=== PATIENT | male | born 1965 | race African-American/Black ===

== ENCOUNTER 2017-08-03 09:39 | Emergency (ER) | payer SELFPAY ==
[2017-08-03 09:45] VITALS: BP 149/90
[2017-08-03] MEDS ORDERED: DEXAMETHASONE SOD PHOS INJ 10 MG/1 ML VIAL IM ONE (10:08)
[2017-08-03] MEDS ORDERED: KETOROLAC TROMETHAMINE INJ/PF 30 MG/1 ML SDV IM ONE (10:08)
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
--- NOTE | 2017-08-03 10:43 | RADIOLOGY REPORT (SQ) ---
EXAM DESCRIPTION: L SPINE WHOLE COMPLETED DATE/TIME: 08/03/2017 10:26 am REASON FOR STUDY: sciatica back pain COMPARISON: None. NUMBER OF VIEWS: Five views including obliques. TECHNIQUE: AP, lateral, oblique, and sacral radiographic images acquired of the lumbar spine. LIMITATIONS: None. FINDINGS: MINERALIZATION: Normal. SEGMENTATION: Normal. No transitional anatomy. ALIGNMENT: Grade 1 anterolisthesis of L4 on L5. Alignment is otherwise normal. VERTEBRAE: Maintained height. No fracture or worrisome bone lesion. DISCS: Mild to moderate multilevel degenerative disc disease. Mild to moderate multilevel facet arth ropathy. POSTERIOR ELEMENTS: Pedicles and facets are intact. No pars defect or posterior arch defects. HARDWARE: None in the spine. PARASPINAL SOFT TISSUES: Normal. PELVIS: Intact as visualized. No fractures or worrisome bone lesions. SI joints intact. OTHER: No other significant finding. IMPRESSION: MILD TO MODERATE MULTILEVEL DEGENERATIVE CHANGE WITH GRADE 1 ANTEROLISTHESIS OF L4 ON L5 . NO ACUTE OSSEOUS ABNORMALITY. TECHNICAL DOCUMENTATION: JOB ID: [id number] [employer]- All Rights Reserved Reading location - IP/workstation name: [email or web address]
[2017-08-03] MEDS ORDERED: LIDOCAINE 5% (700 MG) TRANSDERMAL ADH..PATCH TP ONE (11:01)
[2017-08-03] MEDS ORDERED: METHOCARBAMOL 500 MG TABLET PO ONE (11:02)
== END 2017-08-03 11:22 | disposition home or self-care (01) ==
LOC: ER 09:39
DX: M54.41 Lumbago with sciatica, right side (principal); I10 Essential (primary) hypertension; E11.9 Type 2 diabetes mellitus without complications
CPT/HCPCS: 99283; 96372; 72110; J1885; J1100

== ENCOUNTER 2018-02-05 09:23 | Emergency (ER) | payer OTHER ==
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
[2018-02-05 10:32] LABS: APPEARANCE,URINE CLEAR; BILIRUBIN,URINE NEGATIVE (NEGATIVE); COLOR,URINE STRAW; GLUCOSE, URINE >=500 mg/dL (NEGATIVE); KETONES,URINE TRACE mg/dL (NEGATIVE); LEUKOCYTE ESTERASE,URINE NEGATIVE (NEGATIVE); NITRITE,URINE NEGATIVE (NEGATIVE); PROTEIN,URINE NEGATIVE (NEGATIVE); URINE SPECIFIC GRAVITY 1.033; UROBILINOGEN,URINE NEGATIVE mg/dL (<2.0)
[2018-02-05 10:33] LABS: ABSOLUTE EOSINOPHILS # (AUTO) 0.2 10^3/uL (0.0-0.6); ABSOLUTE LYMPHOCYTES (AUTO) 2.1 10^3/uL (0.5-4.7); ABSOLUTE MONOCYTES (AUTO) 0.6 10^3/uL (0.1-1.4); ABSOLUTE NEUT (AUTO) 4.8 10^3/uL (1.7-8.2); BASOPHILS % (AUTO) 0.4 % (0-2); EOSINOPHILS % (AUTO) 2.6 % (0-6); HEMATOCRIT 44.9 % (37.9-51.0); LYMPHOCYTES % (AUTO) 27.5 % (13-45); MEAN CORPUSCULAR HEMOGLOBIN 27.8 pg (27.0-33.4); MEAN CORPUSCULAR HGB CONC 33.5 g/dL (32.0-36.0); MEAN CORPUSCULAR VOLUME 83 fl (80-97); MONOCYTES % (AUTO) 7.8 % (3-13); PLATELET COUNT 246 10^3/uL (150-450); RED BLOOD COUNT 5.42 10^6/uL (4.35-5.55); RED CELL DISTRIBUTION WIDTH 13.7 % (11.5-14.0); SEGMENTED NEUTROPHILS % (AUTO) 61.7 % (42-78); TOTAL CELLS COUNTED % (AUTO) 100 %; WHITE BLOOD COUNT 7.7 10^3/uL (4.0-10.5)
[2018-02-05 10:48] LABS: ALANINE AMINOTRANSFERASE 16 U/L (21-72); ALBUMIN 4.5 g/dL (3.5-5.0); ALKALINE PHOSPHATASE 79 U/L (38-126); ANION GAP 10 (5-19); ASPARTATE AMINO TRANSFERASE 15 U/L (17-59); BILIRUBIN,DIRECT 0.3 mg/dL (0.0-0.4); BILIRUBIN,TOTAL 1.4 mg/dL (0.2-1.3); BLOOD UREA NITROGEN 14 mg/dL (7-20); CALCIUM 10.1 mg/dL (8.4-10.2); CARBON DIOXIDE 30 mmol/L (22-30); CHLORIDE 100 mmol/L (98-107); GLUCOSE 325 mg/dL (75-110); LIPASE 160.4 U/L (23-300); POTASSIUM 4.5 mmol/L (3.6-5.0); SODIUM 139.9 mmol/L (137-145); TOTAL PROTEIN 7.9 g/dL (6.3-8.2)
[2018-02-05] MEDS ORDERED: METFORMIN HCL 500 MG TABLET PO ONE (11:14)
[2018-02-05] MEDS ORDERED: CARVEDILOL 12.5 MG TABLET PO ONE (11:14)
[2018-02-05 11:26] VITALS: BP 142/84
== END 2018-02-05 11:35 | disposition home or self-care (01) ==
LOC: ER 09:23
DX: H53.8 Other visual disturbances (principal); E11.9 Type 2 diabetes mellitus without complications; R40.2412 Glasgow coma scale score 13-15, at arrival to emergency department; I10 Essential (primary) hypertension; Z87.820 Personal history of traumatic brain injury
CPT/HCPCS: 36415; 80053; 81001; 82962; 83036; 83690; 85025; 99283

== ENCOUNTER 2018-04-10 12:29 | Emergency (ER) | payer MEDICAID, OTHER ==
[2018-04-10 12:39] VITALS: BP 140/109
[2018-04-10] MEDS ORDERED: LIDOCAINE 5% (700 MG) TRANSDERMAL ADH..PATCH TP ONE (12:52)
[2018-04-10] MEDS ORDERED: PREDNISONE 20 MG TABLET PO ONE (12:52)
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
== END 2018-04-10 13:00 | disposition home or self-care (01) ==
LOC: ER 12:29
DX: M54.41 Lumbago with sciatica, right side (principal); I10 Essential (primary) hypertension; E11.9 Type 2 diabetes mellitus without complications; Z87.820 Personal history of traumatic brain injury
CPT/HCPCS: 99283; J7512

== ENCOUNTER 2018-05-18 00:24 | Emergency (ER) | payer SELFPAY ==
[2018-05-18] MEDS ORDERED: KETOROLAC TROMETHAMINE 60 MG/2 ML SDV IM ONE (01:26)
[2018-05-18] MEDS ORDERED: LIDOCAINE 5% (700 MG) TRANSDERMAL ADH..PATCH TP ONE (01:28)
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
[2018-05-18] MEDS ORDERED: HYDROMORPHONE HCL INJ/PF 2 MG/ML AMPULE IM ONE (02:25)
[2018-05-18 03:32] VITALS: BP 154/78
== END 2018-05-18 03:31 | disposition home or self-care (01) ==
LOC: ER 00:24
DX: M54.41 Lumbago with sciatica, right side (principal); G89.29 Other chronic pain; E11.9 Type 2 diabetes mellitus without complications; I10 Essential (primary) hypertension
CPT/HCPCS: 99283; 96372; J1885; J1170

== ENCOUNTER 2018-10-19 05:42 | Inpatient (IN) | payer SELFPAY ==
[2018-10-19] MEDS ORDERED: ASPIRIN 81 MG TABLET, CHEWABLE PO ONE (07:32)
[2018-10-19 08:11] LABS: ABSOLUTE EOSINOPHILS # (AUTO) 0.2 10^3/uL (0.0-0.6); ABSOLUTE MONOCYTES (AUTO) 0.8 10^3/uL (0.1-1.4); ABSOLUTE NEUT (AUTO) 5.7 10^3/uL (1.7-8.2); BASOPHILS % (AUTO) 0.3 % (0-2); EOSINOPHILS % (AUTO) 1.8 % (0-6); HEMATOCRIT 40.3 % (37.9-51.0); HEMOGLOBIN 13.7 g/dL (13.5-17.0); LYMPHOCYTES % (AUTO) 23.4 % (13-45); MEAN CORPUSCULAR HEMOGLOBIN 28.3 pg (27.0-33.4); MEAN CORPUSCULAR VOLUME 84 fl (80-97); MONOCYTES % (AUTO) 9.6 % (3-13); PLATELET COUNT 247 10^3/uL (150-450); RED BLOOD COUNT 4.83 10^6/uL (4.35-5.55); RED CELL DISTRIBUTION WIDTH 13.9 % (11.5-14.0); SEGMENTED NEUTROPHILS % (AUTO) 64.9 % (42-78); TOTAL CELLS COUNTED % (AUTO) 100 %; WHITE BLOOD COUNT 8.7 10^3/uL (4.0-10.5)
--- NOTE | 2018-10-19 08:13 | RADIOLOGY REPORT (SQ) ---
EXAM DESCRIPTION: CHEST SINGLE VIEW COMPLETED DATE/TIME: 10/19/2018 7:44 am REASON FOR STUDY: dyspnea, chest pain COMPARISON: None. EXAM PARAMETERS: NUMBER OF VIEWS: One view. TECHNIQUE: Single frontal radiographic view of the chest acquired. RADIATION DOSE: NA LIMITATIONS: None. FINDINGS: LUNGS AND PLEURA: No opacities, masses or pneumothorax. No pleural effusion. MEDIASTINUM AND HILAR STRUCTURES: No masses. Contour normal. HEART AND VASCULAR STRUCTURES: Heart normal in size. Normal vasculature. BONES: No acute findings. HARDWARE: None in the chest. OTHER: No other significant finding. IMPRESSION: NO ACUTE RADIOGRAPHIC FINDING IN THE CHEST. TECHNICAL DOCUMENTATION: JOB ID: [id number] [employer]- All Rights Reserved Reading location - IP/workstation name: [email or web address]
[2018-10-19 08:35] LABS: ALANINE AMINOTRANSFERASE 23 U/L (21-72); ALBUMIN 4.1 g/dL (3.5-5.0); ALKALINE PHOSPHATASE 63 U/L (38-126); ANION GAP 9 (5-19); ASPARTATE AMINO TRANSFERASE 22 U/L (17-59); BILIRUBIN,DIRECT 0.2 mg/dL (0.0-0.4); BILIRUBIN,TOTAL 0.9 mg/dL (0.2-1.3); BLOOD UREA NITROGEN 16 mg/dL (7-20); CALCIUM 9.3 mg/dL (8.4-10.2); CARBON DIOXIDE 27 mmol/L (22-30); CHLORIDE 106 mmol/L (98-107); CREATINE KINASE 73 U/L (55-170); GLUCOSE 200 mg/dL (75-110); POTASSIUM 4.5 mmol/L (3.6-5.0); SODIUM 142.2 mmol/L (137-145); TOTAL PROTEIN 7.1 g/dL (6.3-8.2)
[2018-10-19 08:47] LABS: CREATINE KINASE MB 1.09 ng/mL (<4.55)
[2018-10-19 08:49] LABS: TROPONIN I 0.228 ng/mL
[2018-10-19] MEDS ORDERED: NITROGLYCERIN 2% OINTMENT 1 GM PACKET TP ONE (09:45)
[2018-10-19] MEDS ORDERED: CARVEDILOL 12.5 MG TABLET PO ONE (09:46)
[2018-10-19] MEDS ORDERED: LISINOPRIL 10 MG TABLET PO ONE (09:46)
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
[2018-10-19] MEDS ORDERED: (PENDING PHARMACY ID) (Liraglutide [Victoza 2-Pak] 1.2 MG) SQ SCH (17:45)
[2018-10-19] MEDS ORDERED: METOPROLOL SUCCINATE 50 MG TAB.SR.24H PO SCH (17:45)
[2018-10-19] MEDS: METFORMIN HCL 500 MG TABLET PO SCH (18:47)
[2018-10-19] MEDS: ASPIRIN 81 MG TABLET, ENT COATED PO SCH (18:48)
[2018-10-19] MEDS: ENOXAPARIN SODIUM INJ 30 MG/0.3 ML DISP.SYRIN SUBCUT SCH (18:48)
[2018-10-19] MEDS: RAMIPRIL 5 MG CAPSULE PO SCH (18:49)
[2018-10-19 19:06] LABS: PARTIAL THROMBOPLASTIN TIME 27.6 SEC (23.5-35.8); PROTHROMBIN TIME 13.2 SEC (11.4-15.4)
[2018-10-19 19:14] LABS: LIPASE 238.3 U/L (23-300)
--- NOTE | 2018-10-19 19:22 | EKG REPORT ---
SEVERITY:- BORDERLINE ECG - SINUS TACHYCARDIA BORDERLINE R WAVE PROGRESSION, ANTERIOR LEADS : Confirmed by: Liliana Bray MD 19-Oct-2018 19:22:01
[2018-10-19 19:27] LABS: ARTERIAL BLOOD BASE EXCESS 0.6 mmol/L; ARTERIAL BLOOD H2CO3 1.33 mmol/L (1.05-1.35); ARTERIAL BLOOD HCO3 25.9 mmol/L (20-24); ARTERIAL BLOOD PCO2 44.2 mmHg (35-45); ARTERIAL BLOOD PH 7.39 (7.35-7.45); ARTERIAL BLOOD TOTAL CO2 27.3 mmol/L (23-27)
[2018-10-19 19:28] LABS: CREATINE KINASE MB 0.72 ng/mL (<4.55)
[2018-10-19 19:29] LABS: ARTERIAL BLOOD FIO2 21%
[2018-10-19 19:30] LABS: ARTERIAL BLOOD PO2 39.9 mmHg (80-100)
[2018-10-19 19:31] LABS: FREE T4 (FREE THYROXINE) 1.21 ng/dL (0.78-2.19)
[2018-10-19 19:34] LABS: TROPONIN I 0.172 ng/mL
[2018-10-19 19:46] LABS: THYROID STIMULATING HORMONE 1.3 uIU/mL (0.47-4.68)
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
[2018-10-19] MEDS: ATORVASTATIN CALCIUM 80 MG TABLET PO SCH (22:20)
[2018-10-19] MEDS: CARVEDILOL 12.5 MG TABLET PO SCH (22:20)
[2018-10-20 01:42] LABS: CREATINE KINASE MB 0.75 ng/mL (<4.55)
[2018-10-20 01:56] LABS: TROPONIN I 0.179 ng/mL
[2018-10-20 06:46] LABS: ABSOLUTE EOSINOPHILS # (AUTO) 0.2 10^3/uL (0.0-0.6); ABSOLUTE LYMPHOCYTES (AUTO) 2.2 10^3/uL (0.5-4.7); ABSOLUTE MONOCYTES (AUTO) 0.8 10^3/uL (0.1-1.4); ABSOLUTE NEUT (AUTO) 5.3 10^3/uL (1.7-8.2); BASOPHILS % (AUTO) 0.4 % (0-2); EOSINOPHILS % (AUTO) 2.2 % (0-6); HEMATOCRIT 37.7 % (37.9-51.0); HEMOGLOBIN 12.8 g/dL (13.5-17.0); LYMPHOCYTES % (AUTO) 25.9 % (13-45); MEAN CORPUSCULAR HEMOGLOBIN 28.4 pg (27.0-33.4); MEAN CORPUSCULAR VOLUME 84 fl (80-97); MONOCYTES % (AUTO) 9.2 % (3-13); PLATELET COUNT 206 10^3/uL (150-450); RED BLOOD COUNT 4.51 10^6/uL (4.35-5.55); RED CELL DISTRIBUTION WIDTH 13.2 % (11.5-14.0); SEGMENTED NEUTROPHILS % (AUTO) 62.3 % (42-78); TOTAL CELLS COUNTED % (AUTO) 100 %; WHITE BLOOD COUNT 8.5 10^3/uL (4.0-10.5)
[2018-10-20 07:15] LABS: ALANINE AMINOTRANSFERASE 21 U/L (21-72); ALBUMIN 3.5 g/dL (3.5-5.0); ALKALINE PHOSPHATASE 54 U/L (38-126); ANION GAP 6 (5-19); ASPARTATE AMINO TRANSFERASE 20 U/L (17-59); BILIRUBIN,DIRECT 0.2 mg/dL (0.0-0.4); BILIRUBIN,TOTAL 1.1 mg/dL (0.2-1.3); BLOOD UREA NITROGEN 20 mg/dL (7-20); CALCIUM 9.3 mg/dL (8.4-10.2); CARBON DIOXIDE 26 mmol/L (22-30); CHLORIDE 105 mmol/L (98-107); CHOLESTEROL 111.71 mg/dL (0-200); CREATINE KINASE 52 U/L (55-170); GLUCOSE 193 mg/dL (75-110); SODIUM 136.5 mmol/L (137-145); TOTAL PROTEIN 6.3 g/dL (6.3-8.2); TRIGLYCERIDES 85 mg/dL (<150)
[2018-10-20 07:23] LABS: CREATINE KINASE MB 0.59 ng/mL (<4.55); TROPONIN I 0.149 ng/mL
[2018-10-20 07:26] LABS: DIRECT LDL 54 mg/dL (<100)
[2018-10-20] MEDS: RAMIPRIL 5 MG CAPSULE PO SCH (09:48)
[2018-10-20] MEDS: CARVEDILOL 12.5 MG TABLET PO SCH ×2 (09:48→21:01)
[2018-10-20] MEDS: ASPIRIN 81 MG TABLET, ENT COATED PO SCH (09:48)
[2018-10-20] MEDS: ENOXAPARIN SODIUM INJ 30 MG/0.3 ML DISP.SYRIN SUBCUT SCH ×2 (09:49→21:01)
[2018-10-20] MEDS: METFORMIN HCL 500 MG TABLET PO SCH ×2 (09:51→18:13)
--- NOTE | 2018-10-20 11:24 | EKG REPORT ---
SEVERITY:- ABNORMAL ECG - SINUS ARRHYTHMIA, RATE 64-94 NONSPECIFIC T ABNORMALITIES, DIFFUSE LEADS : Confirmed by: Liliana Bray MD 20-Oct-2018 11:22:08
--- NOTE | 2018-10-20 13:05 | RADIOLOGY REPORT (SQ) ---
EXAM DESCRIPTION: CTA CHEST COMPLETED DATE/TIME: 10/20/2018 12:52 pm REASON FOR STUDY: SOB : Assess PE COMPARISON: AP chest 10/19/2018 TECHNIQUE: CT scan of the chest performed using helical scanning technique with dynamic intravenous contrast injection. Images reviewed with lung, soft tissue and bone windows. Reconstructed coronal and sagittal MPR images reviewed. Additional 3 dimensional post-processing performed to develop Maximal Intensity Projection images (WI P). All images stored on PACS. All CT scanners at this facility use dose modulation, iterative reconstruction, and/or weight based d osing when appropriate to reduce radiation dose to as low as reasonably achievable (ALARA). [facility]: Dose Right [facility]: CareDose [facility]: Dose Right [facility]: Teradose 4D [facility]: InSphero CONTRAST TYPE AND DOSE: contrast/concentration: Isovue 350.00 mg/ml; Total Contrast Delivered: 78.0 ml; Total Saline Delivered: 110.0 ml Contrast bolus optimized for the pulmonary arteries. Not diagnostic for the aorta. RENAL FUNCTION: Creatinine 1.0 RADIATION DOSE: CT Rad equipment meets quality standard of care and radiation dose reduction techniq ues were employed. CTDIvol: 15.5 - 18.8 mGy. DLP: 591 mGy-cm. . LIMITATIONS: None. FINDINGS: LUNGS AND PLEURA: No masses, infiltrates, or pneumothorax. No pleural effusions or pleura l calcifications. AORTA AND GREAT VESSELS: No aneurysm. Contrast bolus not optimized for the aorta. HEART: No pericardial effusion. No significant coronary artery calcifications. PULMONARY ARTERIES: No emboli visualized in the main pulmonary arteries or the segmental branches. HILAR AND MEDIASTINAL STRUCTURES: No identified masses or abnormal nodes. HARDWARE: None in the chest. UPPER ABDOMEN: No significant findings. Limited exam. THYROID AND OTHER SOFT TISSUES: No masses. No adenopathy. BONES: No acute or significant finding. 3D MIPS: Confirm above findings. OTHER: No other significant finding. IMPRESSION: NORMAL CTA OF THE CHEST. NO PULMONARY EMBOLI. COMMENT: Quality ID # [id number]: Final reports with documentation of one or more dose reduction techniques (e.g., Automated exposure control, adjustment of the mA and/or kV according to patient size, use of iterative reconstruction technique) TECHNICAL DOCUMENTATION: JOB ID: [id number] [employer]- All Rights Reserved Reading location - IP/workstation name: [email or web address]
[2018-10-20] MEDS ORDERED: DEXTROSE 50%-WATER SYRINGE 12.5 GM/25 ML DOSE IV PRN (19:00)
[2018-10-20] MEDS ORDERED: DEXTROSE 40% GEL 15 GM TUBE X 2 PO PRN (19:00)
[2018-10-20] MEDS ORDERED: DEXTROSE 40% GEL 15 GM TUBE PO PRN (19:00)
[2018-10-20] MEDS ORDERED: DEXTROSE 50%-WATER SYRINGE 25 GM/50 ML DOSE IV PRN (19:00)
[2018-10-20] MEDS ORDERED: GLUCAGON,HUMAN RECOMB 1 MG INJ IM PRN (19:00)
[2018-10-20] MEDS: ATORVASTATIN CALCIUM 80 MG TABLET PO SCH (21:02)
--- NOTE | 2018-10-20 21:28 | PDOC PROGRESS REPORT ---
Subjective Progress Note for:: 10/20/18 Subjective:: no new complaints Reason For Visit: NSTEMI, NONCOMPLIANCE WITH MEDICATION REGIMEN Physical Exam Vital Signs: Temp Pulse Resp BP Pulse Ox 97.6 F 94 17 138/80 H 100 10/20/18 07:44 10/20/18 19:00 10/20/18 07:44 10/20/18 07:44 10/20/18 07:44 Intake & Output 10/19/18 10/20/18 10/21/18 06:59 06:59 06:59 Intake Total 1375 600 Balance 1375 600 Weight 102.8 kg 101.3 kg General appearance: PRESENT: no acute distress Eye exam: PRESENT: PERRLA Respiratory exam: PRESENT: clear to auscultation antwon Cardiovascular exam: PRESENT: +S1, +S2 Results Laboratory Results: 10/20/18 06:32 10/20/18 06:32 10/20/18 10/20/18 06:32 06:32 WBC 8.5 RBC 4.51 Hgb 12.8 L Hct 37.7 L MCV 84 MCH 28.4 MCHC 34.0 RDW 13.2 Plt Count 206 Seg Neutrophils % 62.3 Lymphocytes % 25.9 Monocytes % 9.2 Eosinophils % 2.2 Basophils % 0.4 Absolute Neutrophils 5.3 Absolute Lymphocytes 2.2 Absolute Monocytes 0.8 Absolute Eosinophils 0.2 Absolute Basophils 0.0 Sodium 136.5 L Potassium 5.0 Chloride 105 Carbon Dioxide 26 Anion Gap 6 BUN 20 Creatinine 1.04 Est GFR ( Amer) > 60 Est GFR (Non-Af Amer) > 60 Glucose 193 H Calcium 9.3 Total Bilirubin 1.1 AST 20 ALT 21 Alkaline Phosphatase 54 Total Protein 6.3 Albumin 3.5 Triglycerides 85 Cholesterol 111.71 LDL Cholesterol Direct 54 VLDL Cholesterol 17.0 HDL Cholesterol 47 10/19/18 10/19/18 10/19/18 07:52 07:52 10:47 Creatine Kinase 73 CK-MB (CK-2) 1.09 Troponin I 0.228 0.204 NT-Pro-B Natriuret Pep 676 10/19/18 10/19/18 10/20/18 18:40 18:40 00:45 Creatine Kinase 57 55 CK-MB (CK-2) 0.72 Troponin I 0.172 NT-Pro-B Natriuret Pep 10/20/18 10/20/18 10/20/18 00:45 06:32 06:32 Creatine Kinase 52 L CK-MB (CK-2) 0.75 0.59 Troponin I 0.179 0.149 NT-Pro-B Natriuret Pep 10/20/18 11:48 Creatine Kinase CK-MB (CK-2) Troponin I 0.133 NT-Pro-B Natriuret Pep Impressions: Chest X-Ray 10/19/18 07:32 IMPRESSION: NO ACUTE RADIOGRAPHIC FINDING IN THE CHEST. Chest/Abdomen CTA 10/20/18 00:00 IMPRESSION: NORMAL CTA OF THE CHEST. NO PULMONARY EMBOLI. 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
[2018-10-20] MEDS: INSULIN LISPRO 100 UNIT/ML 3 ML VIAL SUBCUT SCH (22:00)
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
[2018-10-20] MEDS ORDERED: RAMIPRIL 5 MG CAPSULE PO ONE (22:30)
[2018-10-21 05:04] LABS: ABSOLUTE EOSINOPHILS # (AUTO) 0.2 10^3/uL (0.0-0.6); ABSOLUTE LYMPHOCYTES (AUTO) 2.6 10^3/uL (0.5-4.7); ABSOLUTE NEUT (AUTO) 6.2 10^3/uL (1.7-8.2); BASOPHILS % (AUTO) 0.3 % (0-2); EOSINOPHILS % (AUTO) 2.2 % (0-6); HEMATOCRIT 38.9 % (37.9-51.0); LYMPHOCYTES % (AUTO) 26.1 % (13-45); MEAN CORPUSCULAR HEMOGLOBIN 28.1 pg (27.0-33.4); MEAN CORPUSCULAR HGB CONC 33.5 g/dL (32.0-36.0); MEAN CORPUSCULAR VOLUME 84 fl (80-97); MONOCYTES % (AUTO) 10.1 % (3-13); PLATELET COUNT 220 10^3/uL (150-450); RED BLOOD COUNT 4.63 10^6/uL (4.35-5.55); RED CELL DISTRIBUTION WIDTH 13.4 % (11.5-14.0); SEGMENTED NEUTROPHILS % (AUTO) 61.3 % (42-78); TOTAL CELLS COUNTED % (AUTO) 100 %; WHITE BLOOD COUNT 10.1 10^3/uL (4.0-10.5)
[2018-10-21 05:25] LABS: ALANINE AMINOTRANSFERASE 28 U/L (21-72); ALBUMIN 3.8 g/dL (3.5-5.0); ALKALINE PHOSPHATASE 61 U/L (38-126); ANION GAP 7 (5-19); ASPARTATE AMINO TRANSFERASE 29 U/L (17-59); BILIRUBIN,DIRECT 0.1 mg/dL (0.0-0.4); BILIRUBIN,TOTAL 1.6 mg/dL (0.2-1.3); BLOOD UREA NITROGEN 17 mg/dL (7-20); CARBON DIOXIDE 26 mmol/L (22-30); CHLORIDE 104 mmol/L (98-107); GLUCOSE 148 mg/dL (75-110); POTASSIUM 4.2 mmol/L (3.6-5.0); SODIUM 136.5 mmol/L (137-145); TOTAL PROTEIN 6.9 g/dL (6.3-8.2)
[2018-10-21] MEDS: INSULIN LISPRO 100 UNIT/ML 3 ML VIAL SUBCUT SCH ×2 (09:11→12:23)
[2018-10-21] MEDS ORDERED: RAMIPRIL 5 MG CAPSULE PO SCH (10:00)
--- NOTE | 2018-10-21 10:08 | XCELERA REPORT ---
[address] [address] Transthoracic Echocardiogram Report Name: YADI WINN Age: 52 yrs Gender: Male : 1965 Patient Status: Inpatient Patient Location: [address] [place], [place] [id number] Study Date: 10/20/2018 01:39 PM Height: 69 in Weight: 223 lb BSA: 2.2 m2 Procedure: A two-dimensional transthoracic echocardiogram with color flow and Doppler was performed. Study Quality: Poor. The study was technically limited with all images being suboptimal in quality. Poor doppler interogation and Poor endocardial visualisation. Reason For Study: SOB /CP /Elevated Troponin History: SOB /CP /Elevated Troponin. Ordering Physician: LILIANA ROBLEDO Performed By: Mercedes Moreno Interpretation Summary Poor doppler interogation and Poor endocardial visualisation. The left ventricle is mildly dilated. There is normal left ventricular wall thickness. LV EF is 30% Left ventricular systolic function is severely reduced. Severe global hypokinesis,with possible lateral wall akinesis. There is no thrombus. cannot assess ASD,VSD,or PFO due to poor study qaulity. The right ventricle is not well visualized secondary to technical limitations Right atrium not well visualized secondary to technical limitations The left atrial size is normal. There is no evidence of mitral valve prolapse. There is no vegetation seen on the mitral valve. There is no mitral valve stenosis. There is a mild amount of mitral regurgitation There is no aortic valvular vegetation. There is no aortic valve stenosis There is no LVOT obstruction. No aortic regurgitation is present. There is no tricuspid stenosis. No tricuspid regurgitation. Unable to calculate RVSP due lack of TR jet. The pulmonic valve is not well visualized. There is no pericardial effusion. Moderate size left pleural effusion. MMode/2D Measurements & Calculations RVDd: 2.7 cm LVIDd: 6.3 cm FS: 14.9 % Ao root diam: 3.4 cm IVSd: 0.80 cm LVIDs: 5.3 cm EDV(Teich): 199.7 ml Ao root area: 9.2 cm2 LVPWd: 1.0 cm ESV(Teich): 137.9 ml EF(Teich): 30.9 % Doppler Measurements & Calculations MV E max александр: MV dec slope: Ao V2 max: LV V1 max P.4 cm/sec 990.5 cm/sec2 97.2 cm/sec 1.5 mmHg MV A max александр: MV dec time: 0.11 secAo max PG: LV V1 max: 45.1 cm/sec 3.8 mmHg 61.4 cm/sec MV E/A: 2.3 PA V2 max: 80.4 cm/sec PA max P.6 mmHg Left Ventricle The left ventricle is mildly dilated. There is normal left ventricular wall thickness. LV EF is 30%. Left ventricular systolic function is severely reduced. Severe global hypokinesis,with possible lateral wall akinesis. There is no thrombus. cannot assess ASD,VSD,or PFO due to poor study qaulity. Right Ventricle The right ventricle is not well visualized secondary to technical limitations. Atria Right atrium not well visualized secondary to technical limitations. The left atrial size is normal. Mitral Valve There is no evidence of mitral valve prolapse. There is no vegetation seen on the mitral valve. There is no mitral valve stenosis. There is a mild amount of mitral regurgitation. Aortic Valve There is no aortic valvular vegetation. There is no aortic valve stenosis. There is no LVOT obstruction. No aortic regurgitation is present. Tricuspid Valve There is no tricuspid stenosis. No tricuspid regurgitation. Unable to calculate RVSP due lack of TR jet. Pulmonic Valve The pulmonic valve is not well visualized. Great Vessels The aortic root is not well visualized. Effusions There is no pericardial effusion. Moderate size left pleural effusion. : LILIANA ROBLEDO > Liliana Robledo
--- NOTE | 2018-10-21 10:09 | Progress Note ---
Provider Note Provider Note: CARDIOLOGY PROGRESS NOTE by Dr. Liliana Bray on 10/21/2018. SUBJECTIVE: The patient has no chest pain. But the patient is EKG shows new T wave inversion in anterior leads and apical lateral leads consistent with ischemia. His troponin has risen slightly to 1.45. The patient has no angina. He does have orthopnea. There is no PND or leg edema. There is no arrhythmia seen on the monitor. There is no TIA CVA symptoms. PHYSICAL EXAM: The patient is moderately obese. He is in no acute distress. He is well-groomed. Selected Entries 10/21/18 08:15 Temperature 98.5 F Temperature Oral Source Pulse Rate 75 Respiratory 16 Rate Blood Pressure 134/90 H Blood Pressure 104 Mean BP Location Right Arm BP Position Supine O2 Sat by Pulse 100 Oximetry Oxygen Delivery Room Air Method HEAD: Is atraumatic normocephalic. EYES: Pupils are equal round regular reactive to light and accommodation. Extraocular movements are normal. There is no conjunctival pallor. There is no scleral icterus. EARS: Tympanic membranes are intact. External auditory canals are clear. NOSE: Nasal mucous membranes are intact. There is no deviated nasal septum. MOUTH: Mucous membranes of mouth are moist. Tongue is moist. There is no ulcers. There is no bleeding from the gums. THROAT: There is no redness of the oropharynx. There is no exudates. Mallampati classification is class III. SKIN: There is no skin rashes. There is no skin lesions. There is no particular ecchymosis. NECK: Is supple. Is mild JVD present. Carotids are equal there is no bruit. There is no lymphadenopathy. There is no goiter. There is no accessory muscle respiration use. Trachea central. LUNGS: Is clear to auscultation percussion, without any rhonchi rales or wheezing. HEART: S1-S2 is heard. There is murmur of mild mitral regurgitation present there is no aortic stenosis or aortic regurgitation murmur. There is a questionable S3 gallop. There is no S4 gallop. There is no rub. ABDOMEN: Is obese. Nontender. There is no hepatospleno megaly. Bowel sounds are well heard. There is no rebound guarding or rigidity. EXTREMITIES: Femorals are deep. Femorals are slightly diminished. There is no femoral bruits. There is no pedal edema. There is no DVT or cellulitis. There is no calf tenderness. There is no sinus or clubbing. Leg pulses well felt [employer] HE[employer]AF[employer] PROFESSOR: The patient is conscious awake alert oriented x3 with no focal deficit. PSYCHIATRIC: The patient judgment insight are intact his affect is normal. EKG: Sinus rhythm. Anterolateral T inversion consistent with ischemia. Labs- All tests 24 hr 10/20/18 10/20/18 10/21/18 11:48 21:50 04:48 WBC 10.1 RBC 4.63 Hgb 13.0 L Hct 38.9 MCV 84 MCH 28.1 MCHC 33.5 RDW 13.4 Plt Count 220 Seg Neutrophils % 61.3 Lymphocytes % 26.1 Monocytes % 10.1 Eosinophils % 2.2 Basophils % 0.3 Absolute Neutrophils 6.2 Absolute Lymphocytes 2.6 Absolute Monocytes 1.0 Absolute Eosinophils 0.2 Absolute Basophils 0.0 Sodium Potassium Chloride Carbon Dioxide Anion Gap BUN Creatinine Est GFR ( Amer) Est GFR (Non-Af Amer) Glucose POC Glucose 129 H Calcium Total Bilirubin Direct Bilirubin Neonat Total Bilirubin Neonat Direct Bilirubin Neonat Indirect Bili AST ALT Alkaline Phosphatase Troponin I 0.133 Total Protein Albumin 10/21/18 10/21/18 10/21/18 04:48 08:18 10:21 WBC RBC Hgb Hct MCV MCH MCHC RDW Plt Count Seg Neutrophils % Lymphocytes % Monocytes % Eosinophils % Basophils % Absolute Neutrophils Absolute Lymphocytes Absolute Monocytes Absolute Eosinophils Absolute Basophils Sodium 136.5 L Potassium 4.2 Chloride 104 Carbon Dioxide 26 Anion Gap 7 BUN 17 Creatinine 0.90 Est GFR ( Amer) > 60 Est GFR (Non-Af Amer) > 60 Glucose 148 H POC Glucose 161 H Calcium 9.0 Total Bilirubin 1.6 H Direct Bilirubin 0.1 Neonat Total Bilirubin Not Reportable Neonat Direct Bilirubin Not Reportable Neonat Indirect Bili Not Reportable AST 29 ALT 28 Alkaline Phosphatase 61 Troponin I 0.145 Total Protein 6.9 Albumin 3.8 10/21/18 11:17 WBC RBC Hgb Hct MCV MCH MCHC RDW Plt Count Seg Neutrophils % Lymphocytes % Monocytes % Eosinophils % Basophils % Absolute Neutrophils Absolute Lymphocytes Absolute Monocytes Absolute Eosinophils Absolute Basophils Sodium Potassium Chloride Carbon Dioxide Anion Gap BUN Creatinine Est GFR ( Amer) Est GFR (Non-Af Amer) Glucose POC Glucose 140 H Calcium Total Bilirubin Direct Bilirubin Neonat Total Bilirubin Neonat Direct Bilirubin Neonat Indirect Bili AST ALT Alkaline Phosphatase Troponin I Total Protein Albumin Chest X-Ray 10/19/18 07:32 IMPRESSION: NO ACUTE RADIOGRAPHIC FINDING IN THE CHEST. Chest/Abdomen CTA 10/20/18 00:00 IMPRESSION: NORMAL CTA OF THE CHEST. NO PULMONARY EMBOLI. IMPRESSION/RECOMMENDATION: 1.NSTEMI: Chest pain and shortness of breath with elevated troponin I. The patient's troponin has risen again slightly. The patient has new EKG changes in the anterior and apical lateral leads consistent with ischemia in the form of T wave inversion. Hence this is definitely a non-ST elevation NM.Multiple CAD risk factors and the patient hence would recommend cardiac catheterization to assess significance of coronary artery disease if present. This is especially in view of the cardiomyopathy with the echocardiogram showing possible apical lateral wall hypokinesis. 2. Congestive heart failure: Continue Coreg and RAYSHAWN inhibitor. We will add IV Lasix. 3.Uncontrolled hypertension on admission: At present blood pressure well controlled 4. Cardiomyopathy with severely reduced LV ejection fraction of 30%. 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 4. Diabetes mellitus: Continue antidiabetic medication and serial Accu-Cheks. 5. Hypertension: At present blood pressure well controlled Strongly recommend cardiac catheterization is patient. Risks, benefits, and complications of cardiac catheterization have been discussed with the patient. The case was discussed with attending physician also. Management plan discussed with him. Since there is no cardiac catheterization available here,will transfer the patient [facility]. Patient will be shown the cardiac catheterization teaching video. The case has been discussed with Dr. Jimenez, drying equipment operator [facility]. He has accepted the patient under Dr. Todd's care. This has been discussed with Dr. Bowser. 60 minutes spent on this patient with more than 50% time spent in direct patient care. Time spent also was discussions of the cases with the patient and with the U drying equipment operator. Medical decision making is of high complexity. Since patient being transferred will sign off. The patient has been given my contact number to see if he indeed desires to follow-up with me. Poor doppler interogation and Poor endocardial visualisation. The left ventricle is mildly dilated. There is normal left ventricular wall thickness. LV EF is 30% Left ventricular systolic function is severely reduced. Severe global hypokinesis,with possible lateral wall akinesis. There is no thrombus. cannot assess ASD,VSD,or PFO due to poor study qaulity. The right ventricle is not well visualized secondary to technical limitations Right atrium not well visualized secondary to technical limitations The left atrial size is normal. There is no evidence of mitral valve prolapse. There is no vegetation seen on the mitral valve. There is no mitral valve stenosis. There is a mild amount of mitral regurgitation There is no aortic valvular vegetation. There is no aortic valve stenosis There is no LVOT obstruction. No aortic regurgitation is present. There is no tricuspid stenosis. No tricuspid regurgitation. Unable to calculate RVSP due lack of TR jet. The pulmonic valve is not well visualized. There is no pericardial effusion.
--- NOTE | 2018-10-21 10:32 | EKG REPORT ---
SEVERITY:- ABNORMAL ECG - SINUS RHYTHM T ABNORMALITIES, ANT-LAT LEADS .NEW T WAVE CHANGES ANTERIOR AND APICAL LATERAL WALL CONSISTENT WITH I SCHEMIA. : Confirmed by: Liliana Bray MD 21-Oct-2018 10:31:22
[2018-10-21] MEDS: ASPIRIN 81 MG TABLET, ENT COATED PO SCH (10:59)
[2018-10-21] MEDS: CARVEDILOL 12.5 MG TABLET PO SCH (10:59)
[2018-10-21] MEDS: METFORMIN HCL 500 MG TABLET PO SCH (10:59)
[2018-10-21] MEDS: ENOXAPARIN SODIUM INJ 30 MG/0.3 ML DISP.SYRIN SUBCUT SCH (11:00)
[2018-10-21] MEDS ORDERED: FUROSEMIDE INJ/PF 20 MG/2 ML SDV IV ONE (11:50)
--- NOTE | 2018-10-21 12:44 | RADIOLOGY REPORT (SQ) ---
EXAM DESCRIPTION: CHEST SINGLE VIEW COMPLETED DATE/TIME: 10/21/2018 12:07 pm REASON FOR STUDY: SOB / Pleural Effusion. COMPARISON: 10/19/2018 EXAM PARAMETERS: NUMBER OF VIEWS: One view. TECHNIQUE: Single frontal radiographic view of the chest acquired. RADIATION DOSE: NA LIMITATIONS: None. FINDINGS: LUNGS AND PLEURA: No opacities, masses or pneumothorax. No pleural effusion. MEDIASTINUM AND HILAR STRUCTURES: No masses. Contour normal. HEART AND VASCULAR STRUCTURES: Heart normal in size. Normal vasculature. BONES: No acute findings. HARDWARE: None in the chest. OTHER: No other significant finding. IMPRESSION: No significant pleural effusion or other evidence of acute cardiopulmonary process. TECHNICAL DOCUMENTATION: JOB ID: [id number] [employer]- All Rights Reserved Reading location - IP/workstation name: [email or web address]
[2018-10-21 14:12] VITALS: BP 138/93
--- NOTE | 2018-10-21 14:26 | PDOC TRANSFER SUMMARY ---
General Admission Date/PCP: 10/19/18 12:41 Admission Date: 10/19/18 Transfer Date: 10/21/18 Accepting Facility: [facility] Resuscitation Status: Full Code - Transfer Diagnosis (1) Non-ST elevation ID (NSTEMI) Is this a current diagnosis for this admission?: Yes (2) T2DM (type 2 diabetes mellitus) Is this a current diagnosis for this admission?: Yes - Transfer Medications Home Medications: Carvedilol 25 mg PO DAILY 10/19/18 Liraglutide [Victoza 2-Mic] 1.2 mg SQ DAILY 10/19/18 Lisinopril/Hydrochlorothiazide [Lisinopril-Hctz 20-25 mg Tab] 1 tab PO DAILY 10/19/18 Metformin HCl 1,000 mg PO BID 10/19/18 Pravastatin Sodium 20 mg PO QHS 10/19/18 Transfer Medications: Current Medications Aspirin (Ecotrin 81 Mg Ec Tablet) 162 mg PO DAILY [facility] Stop: 11/18/18 17:59 Last Admin: 10/21/18 10:59 Dose: 162 mg Documented by: Atorvastatin Calcium (Lipitor 80 Mg Tablet) 80 mg PO QHS [facility] Stop: 11/18/18 21:59 Last Admin: 10/20/18 21:02 Dose: 80 mg Documented by: Carvedilol (Coreg 12.5 Mg Tablet) 25 mg PO Q12 NAREN Stop: 11/18/18 21:59 Last Admin: 10/21/18 10:59 Dose: 25 mg Documented by: Dextrose (Dextrose Inj 50% Syringe (25 Gm/50 Ml)) 12.5 gm IV PRN PRN; Protocol PRN Reason: FOR BG 50-69 IN ALERT PATIENT Stop: 11/19/18 18:59 Dextrose (Dextrose Inj 50% Syringe (25 Gm/50 Ml)) 25 gm IV PRN PRN; Protocol Stop: 11/19/18 18:59 Enoxaparin Sodium (Lovenox Inj 30 Mg/0.3 Ml Disp.Syrin) 30 mg SUBCUT Q12 NAREN Stop: 11/18/18 18:29 Last Admin: 10/21/18 11:00 Dose: 30 mg Documented by: Glucagon (Glucagen Inj 1 Mg Vial) 1 mg IM PRN PRN; Protocol PRN Reason: EVALUATE FOR BG < 70 Stop: 11/19/18 18:59 Glucose (Glutose 40% Gel 15 Gm Tube) 15 gm PO PRN PRN; Protocol PRN Reason: FOR BG 50-69 IN ALERT PATIENT Stop: 11/19/18 18:59 Glucose (Glutose 40% Gel 15 Gm Tube) 30 gm PO PRN PRN; Protocol PRN Reason: FOR BG < 50 IN ALERT PATIENT Stop: 11/19/18 18:59 Insulin Human Lispro (Humalog Insulin 100 Unit/1 Ml 3 Ml Vial) 0 - 12 unit SUBCUT ACHS [facility]; Protocol Stop: 11/19/18 21:59 Last Admin: 10/21/18 12:23 Dose: Not Given Documented by: Metformin HCl (Glucophage 500 Mg Tablet) 1,000 mg PO BID [facility] Stop: 11/18/18 17:59 Last Admin: 10/21/18 10:59 Dose: 1,000 mg Documented by: Patient Own Medication (Liraglutide [Victoza 2-Mic]) 1.2 mg SQ DAILY [facility] Stop: 11/18/18 17:44 Ramipril (Altace 5 Mg Capsule) 5 mg PO Q12 NAREN Stop: 11/20/18 09:59 Last Admin: 10/21/18 10:58 Dose: 5 mg Documented by: - Allergies Allergies/Adverse Reactions: No Known Allergies Allergy (Verified 04/10/18 12:31) Hospital Course Hospital Course: Patient 52-year-old male with a history of type 2 diabetes mellitus, he came to the emergency room on 10/19/2018 for evaluation of substernal chest pain, the initial twelve-lead EKG that was done revealed Q waves in V1 V2, he also had elevated troponin in the ID range 0.2. He was treated for ischemia with Lovenox, beta-winifred, antiplatelet and statin therapy. Consultation was requested from cardiology Dr. Bray, 2D echo was done, there was severe global hypokinesis with lateral wall akinesis, the ejection fraction was 30%. Patient needed to have catheterization, there was no new EKG change with increased in the troponin which was trending down previously. Dr. Bray made arrangement for transfer to [place] for cardiac cauterization and if needed coronary intervention. Physical Exam Vital Signs: Temp Pulse Resp BP Pulse Ox 98.3 F 80 18 138/93 H 99 10/21/18 11:17 10/21/18 11:17 10/21/18 11:17 10/21/18 11:17 10/21/18 11:17 Intake & Output 10/20/18 10/21/18 10/22/18 06:59 06:59 06:59 Intake Total 1375 1400 Balance 1375 1400 Weight 101.3 kg 100.4 kg General appearance: PRESENT: no acute distress, well-developed, well-nourished Head exam: PRESENT: atraumatic, normocephalic Eye exam: PRESENT: conjunctiva pink, EOMI, PERRLA Ear exam: PRESENT: normal external ear exam Mouth exam: PRESENT: moist, tongue midline Respiratory exam: PRESENT: clear to auscultation antwon Cardiovascular exam: PRESENT: RRR, +S1, +S2 Pulses: PRESENT: normal dorsalis pedis pul Vascular exam: PRESENT: normal capillary refill GI/Abdominal exam: PRESENT: normal bowel sounds, soft Rectal exam: PRESENT: deferred Extremities exam: PRESENT: full ROM Neurological exam: PRESENT: alert, awake, oriented to person, oriented to place, oriented to time, oriented to situation, CN II-XII grossly intact Psychiatric exam: PRESENT: appropriate affect, normal mood Skin exam: PRESENT: dry, intact, warm Results Laboratory Results: 10/21/18 04:48 10/21/18 04:48 10/21/18 10/21/18 04:48 04:48 WBC 10.1 RBC 4.63 Hgb 13.0 L Hct 38.9 MCV 84 MCH 28.1 MCHC 33.5 RDW 13.4 Plt Count 220 Seg Neutrophils % 61.3 Lymphocytes % 26.1 Monocytes % 10.1 Eosinophils % 2.2 Basophils % 0.3 Absolute Neutrophils 6.2 Absolute Lymphocytes 2.6 Absolute Monocytes 1.0 Absolute Eosinophils 0.2 Absolute Basophils 0.0 Sodium 136.5 L Potassium 4.2 Chloride 104 Carbon Dioxide 26 Anion Gap 7 BUN 17 Creatinine 0.90 Est GFR ( Amer) > 60 Est GFR (Non-Af Amer) > 60 Glucose 148 H Calcium 9.0 Total Bilirubin 1.6 H AST 29 ALT 28 Alkaline Phosphatase 61 Total Protein 6.9 Albumin 3.8 10/19/18 10/19/18 10/19/18 07:52 07:52 10:47 Creatine Kinase 73 CK-MB (CK-2) 1.09 Troponin I 0.228 0.204 NT-Pro-B Natriuret Pep 676 07/08/19 07/08/19 07/09/19 18:40 18:40 00:45 Creatine Kinase 57 55 CK-MB (CK-2) 0.72 Troponin I 0.172 NT-Pro-B Natriuret Pep 10/20/18 10/20/18 10/20/18 00:45 06:32 06:32 Creatine Kinase 52 L CK-MB (CK-2) 0.75 0.59 Troponin I 0.179 0.149 NT-Pro-B Natriuret Pep 10/20/18 10/21/18 11:48 10:21 Creatine Kinase CK-MB (CK-2) Troponin I 0.133 0.145 NT-Pro-B Natriuret Pep Impressions: Chest/Abdomen CTA 10/20/18 00:00 IMPRESSION: NORMAL CTA OF THE CHEST. NO PULMONARY EMBOLI. Chest X-Ray 10/21/18 00:00 IMPRESSION: No significant pleural effusion or other evidence of acute cardiopulmonary process.
== END 2018-10-21 15:23 | disposition short-term general hospital (02) | DRG 281 ==
LOC: ER 05:42 → EH 12:41 → 3W 16:24
PROVIDERS: ADMIT Internal Medicine; ATTEND Internal Medicine
DX: I21.4 Non-ST elevation (NSTEMI) myocardial infarction (principal); I42.0 Dilated cardiomyopathy; E78.5 Hyperlipidemia, unspecified; E66.9 Obesity, unspecified; E11.42 Type 2 diabetes mellitus with diabetic polyneuropathy; I25.5 Ischemic cardiomyopathy; I11.0 Hypertensive heart disease with heart failure; I50.9 Heart failure, unspecified; Z91.14 Patient's other noncompliance with medication regimen; Z87.820 Personal history of traumatic brain injury; Z87.891 Personal history of nicotine dependence; Z82.49 Family history of ischemic heart disease and other diseases of the circulatory system
CPT/HCPCS: 36415; 36600; 71045; 71275; 80048; 80053; 80061; 80076; 82140; 82150; 82550; 82553; 82803; 82962; 83036; 83690; 83735; 83880; 84439; 84443; 84484; 85025; 85610; 85730; 93005; 93010; 93306; 99285; J1650; J1940; J3490